=== PATIENT | male | born 1970 | race Caucasian/White ===

== ENCOUNTER → 2024-05-10 | Outpatient (CLI) | payer SELFPAY ==
[~2024-05-10] MED LIST: LORTAB 7.5/5001 TAB PO; NO HOME MEDICATIONS; PRILOSEC 20MG20 MG PO
== END ==
LOC: ZCOL.LAB 17:50
DX: J32.9 Chronic sinusitis, unspecified (principal)

== ENCOUNTER → 2024-05-29 | Outpatient (CLI) | payer SELFPAY | LOC: ZCOL.LAB 19:31 | DX: J32.9 Chronic sinusitis, unspecified (principal) ==

== ENCOUNTER → 2024-09-05 | Outpatient (REF) | payer OTHER | LOC: ZCOL.LAB 16:21 | DX: H00.033 Abscess of eyelid right eye, unspecified eyelid (principal) ==